=== PATIENT | male | born 1980 | race Caucasian/White ===

== ENCOUNTER 2017-06-26 08:31 | Day surgery (SDC) | payer OTHER ==
[2017-06-26 09:03] VITALS: BMI 39.4
[2017-06-26] MEDS ORDERED: Propofol 10 mg/ml Inj (20 ML) ONE (11:11)
--- NOTE | 2017-06-26 11:17 | CP.SDSHP ---
Same Day Surgery H & P - History Proposed Procedure: EGD Pre-Op Diagnosis: SEE NOTES - Allergies Allergies: Allergies No Known Allergies Allergy (Verified 06/26/17 09:02) - Physical Exam Vital Signs: Vital Signs 06/26/17 09:18 Temperature 97 F L Pulse Rate 59 L Respiratory 19 Rate Blood Pressure 124/84 O2 Sat by Pulse 97 Oximetry Mental Status: Alert & Oriented x3 Neuro: WNL Heart: WNL Lungs: WNL GI: Other - {Optional Preform as Required} Breast: WNL Abdomen: Other Rectal: Other Integument: WNL : WNL Ortho: WNL ENT: WNL - Impression Pt. Evaluated Today:Candidate for Anesthesia & Procedure: Yes - Date & Time Time: :17 Short Stay Discharge - Short Stay Discharge Admitting Diagnosis/Reason for Visit: DYSPEPSIA Disposition: HOME/ ROUTINE
[2017-06-26] MEDS ORDERED: Lactated Ringer's 500 ML IV ONE (11:24)
[2017-06-26] MEDS ORDERED: Pantoprazole 40 mg EC Tab PO ONE (11:45)
[2017-06-26 12:07] VITALS: TEMP 97.6
[2017-06-26 12:08] VITALS: O2SAT 96
[2017-06-26] MEDS ORDERED: Pantoprazole 40 mg EC Tab PO STA (12:32)
[2017-06-26 13:32] VITALS: BP 112/77; PULSE 73; RESP 15
== END 2017-06-26 12:30 | disposition home or self-care (01) ==
LOC: C.ENDO 08:31
PROVIDERS: ATTEND Specialist
DX: K29.50 Unspecified chronic gastritis without bleeding (principal); K29.80 Duodenitis without bleeding; K44.9 Diaphragmatic hernia without obstruction or gangrene; B96.81 Helicobacter pylori [H. pylori] as the cause of diseases classified elsewhere
CPT/HCPCS: 43239; 88305; 88342; J2704; J3010; J7120